=== PATIENT | male | born 1970 | race Two or more races ===

== ENCOUNTER 2022-01-16 15:01 | Emergency (ER) | payer MEDICAID, OTHER ==
[~2022-01-16] VITALS: Ht 172.7 cm; Wt 99.8 kg
[2022-01-16 16:33] LABS: BUN/Creatinine Ratio 13.6
[2022-01-16 16:34] LABS: Albumin 4.2 g/dL (3.4-5.0); Calcium 9.9 mg/dL (8.5-10.1)
[2022-01-16 16:36] LABS: Basophils # (auto) 0.2 10 ^3/uL (0-0.2); Basophils % (auto) 1.7 % (0.0-2.0); Eosinophils # (auto) 0.5 10 ^3/uL (0-0.8); Eosinophils % (auto) 5.9 % (0.0-7.0); Hematocrit 47.5 % (41.0-53.0); Lymphocytes # (auto) 1.9 10 ^3/uL (0.4-5.4); Lymphocytes % (auto) 21.3 % (10.0-50.0); Mean Corpuscular Hemoglobin 31.3 pg (28.0-32.0); Mean Corpuscular Hgb Conc. 33.7 g/dL (32.0-36.0); Mean Corpuscular Volume 92.7 fL (80.0-100.0); Monocytes # (auto) 0.9 10 ^3/uL (0-1.3); Neutrophils # (auto) 5.6 10 ^3/uL (1.6-8.6); Neutrophils % (auto) 61.1 % (37.0-80.0); Nucleated Red Blood Cells % 0.1 %; Red Blood Cells 5.12 10^6/uL (4.5-5.90); Red Cell Distribution Width 13.3 % (11.8-14.3); White Blood Cell 9.1 10^3/uL (4.4-10.8)
[2022-01-16 16:37] LABS: Bilirubin, Total 0.3 mg/dL (0.2-1.0); Total Protein 8.1 g/dL (6.4-8.2)
[2022-01-16 18:44] VITALS: BP 135/87
== END 2022-01-16 16:06 | disposition short-term general hospital (02) ==
LOC: ER 15:01
DX: R90.0 Intracranial space-occupying lesion found on diagnostic imaging of central nervous system (principal); G93.6 Cerebral edema; R74.8 Abnormal levels of other serum enzymes; R42 Dizziness and giddiness; Z20.822 Contact with and (suspected) exposure to COVID-19
CPT/HCPCS: 36415; 70450; 80053; 84484; 85025; 93005; 99291

== ENCOUNTER 2022-05-02 20:32 | Emergency (ER) | payer MEDICAID ==
[~2022-05-02] VITALS: Ht 170.2 cm; Wt 95.0 kg
[2022-05-02] MEDS ORDERED: diphenhdrAMINE HCL 50 MG/1 ML VL ONE (20:46)
[2022-05-02] MEDS ORDERED: FAMOTIDINE (10MG/ML) 2ML VL IV ONE (20:48)
[2022-05-02] MEDS ORDERED: methylPREDNISolone SOD SUCC 125 MG/2 ML VL ONE (20:48)
[2022-05-02] MEDS ORDERED: ALBUTEROL SULF 2.5 MG/0.5ML(0.5%) NEB SOLN NEB ONE (21:00)
[2022-05-02] MEDS ORDERED: IPRATROPIUM BROM 0.5 MG/2.5ML INH SOL NEB ONE (21:00)
[2022-05-03] MEDS ORDERED: EPIN0.3I27 IJ (01:50)
[2022-05-03 02:12] VITALS: BP 123/81
== END 2022-05-03 02:34 | disposition home or self-care (01) ==
LOC: ER 20:34
DX: T78.40XA Allergy, unspecified, initial encounter (principal); I10 Essential (primary) hypertension; E11.9 Type 2 diabetes mellitus without complications; E78.5 Hyperlipidemia, unspecified; Z79.899 Other long term (current) drug therapy; Z91.013 Allergy to seafood; Y92.89 Other specified places as the place of occurrence of the external cause
CPT/HCPCS: 71045; 94640; 96374; 99283; J1200; J2930; J3490; J7644